=== PATIENT | male | born 1930 | race Caucasian/White ===

== ENCOUNTER → 2018-04-01 | Outpatient (CLI) | payer OTHER, MEDICARE ==
[~2018-04-01] MED LIST: ACTONEL150 MG PO; ASPIRIN EC81 M1 PO; ATROVENT30 ML NASAL; BACTRIM DS TAB1 EACH PO; BRILINTA90 MG PO; CILOSTAZOL 100100 MG PO; COZAAR 25 MG TA25 M2 PO; COZAAR 25 MG TA25 MG PO; EFFIENT10 MG PO; LANTUS SUBQ; LIPITOR40 MG PO; METAMUCIL FIBE3.4 GM PO; METOCLOPRAMIDE10 MG PO; MULTIVITAMINS PO; NEXIUM 40 MG CA40 M1 PO; NITROGLYCERIN0.4 MG SL; NORCO 5-325 TA1 EACH PO; NOVOLOG100 UNIT/1 SUBQ; NYSTATIN 1100000 U/M PO; PERCOCET 5-3251 EACH PO; PREDNISONE 20 M20 M1 PO; PYRIDOSTIGMINE60 M1 PO; RANITIDINE HCL300 M1 PO; REGLAN 10 MG TA10 M1 PO; TOPROL XL25 MG PO; VITAMIN D 5050000 I1 PO; VITAMIN D250000 UNIT PO; ZANTAC 150MG T150 M1 PO; ZOCOR40 MG PO; ZOFRAN4 MG PO
== END ==
LOC: NUC 08:00
DX: I10 Essential (primary) hypertension (principal); E11.9 Type 2 diabetes mellitus without complications; Z87.891 Personal history of nicotine dependence; Z79.4 Long term (current) use of insulin